=== PATIENT | male | born 1980 | race African-American/Black ===

== ENCOUNTER 2016-10-17 23:58 | Emergency (ER) | payer OTHER ==
--- NOTE | ~2016-10-17 | CT2 ---
[facility] A Service of [facility] RADIOLOGY TEXT RESULTS PATIENT: SHUKRI SAHNI LOCATION: SALLY : [birth year] UNIT #: [id number] AGE: [address]: Savana Parekh MD SEX: M ORDER DR: [id number] [facility]. [place], [place] [address] [id number] E MR#: [id number] Acc #: [id number] NAME: SHUKRI SAHNI : 1980 SEX: M STUDY DATE/TIME: 10/18/2016 1:32 UNIT: SALLY ROOM: STUDY DESCRIPTION: CT Abd and Pelv W Cont Attending Physician: Savana Parekh M.D. Ordering Physician: Savana Parekh M.D. MEDICAL IMAGING REPORT This report is preliminary unless electronic signature is present EXAM CT abdomen and pelvis with contrast 10/18/2016 HISTORY Generalized abdominal pain with nausea, vomiting and diarrhea today. COMPARISON CT head without contrast 08/17/2015. TECHNIQUE 5 mm axial images from the lung bases through lesser trochanters after intravenous contrast administration. Enteric contrast was not administered. Sagittal and coronal reformatted images were obtained. This CT exam was performed with one or more of the following radiation dose reduction techniques: automatic exposure control, adjustment of mA and/or kV according to patient size, and iterative reconstruction. FINDINGS ABDOMEN: Limited evaluation bowel due to lack of both IV and enteric contrast. There appears to be generalized thickening of large and small bowel loops suggesting potential diffuse enterocolitis. No evidence of high-grade large or small bowel obstruction. Appendix appears normal. No free air pneumatosis identified. No abscess is seen. Lung bases appear free of consolidation. Previously described 5 mm in the right lower lobe pulmonary nodule measures slightly smaller today at about 4 mm, and is thought to most likely be stable, allowing for differences in slice selection. The liver, gallbladder, spleen, pancreas, adrenals and kidneys are normal. [facility] A Service of [facility] RADIOLOGY TEXT RESULTS PATIENT: SHUKRI SAHNI LOCATION: SALLY : [birth year] UNIT #: [id number] AGE: [address]: IzabellaSavana Amber RODRIGUEZ SEX: M ORDER DR: PELVIS: No pelvic free fluid is identified. Urinary bladder, prostate and rectum are within normal limits. No acute osseous abnormalities are identified. IMPRESSION 1. Limited evaluation of the bowel due to lack of enteric contrast. There does appear to be some generalized large and small bowel wall thickening raising the possibility of enterocolitis. Correlate with clinical symptoms. 2. The appendix is normal. 3. 4-5 mm noncalcified right lower lobe pulmonary nodule is stable since 08/17/2015. 12-month CT chest followup would be recommended. Dictated by... Tracy Valencia M.D. THIS IS AN ELECTRONICALLY VERIFIED REPORT Tracy Valencia M.D. at 10/18/2016 10:01 PM NALLELY/arvind TD: 10/18/2016 03:32 JOB #: [id number] MEDICAL IMAGING REPORT Page 1 of 1 COPY
[~2016-10-17 23:58] MED LIST: ALBUTEROL17 GM INH; CHANTIX PO; FLEXERIL PO; LORTAB 7.5-5001 TAB PO; MEDROL PO
[2016-10-18 00:07] LABS: BASOPHIL% 0.1 % (0-2.5); DIFF IND YES; EOSINOPHIL# 0.1 X10e3 (0-0.7); EOSINOPHIL% 0.7 % (0.0-7.0); HEMATOCRIT 48.6 % (38.0-50.0); LYMPHOCYTE# 0.8 X10e3 (1.0-3.5); LYMPHOCYTE% 4.3 % (17.0-45.0); MEAN CORPUSCULAR HEMOGLOBIN 29.7 PG (28-34); MEAN PLATELET VOLUME 8.2 FL (6.5-11.5); MONOCYTE# 0.5 X10e3 (0-1.0); MONOCYTE% 2.6 % (3.0-12.0); NEUTROPHIL% 92.3 % (40-75); PLATELET COUNT 272 X10e3 (140-420); RED CELL DISTRIBUTION WIDTH 12.4 % (11.0-15.5); WHITE BLOOD COUNT 19.5 X10e3 (4.0-10.5)
[2016-10-18 00:30] LABS: ALBUMIN SERUM 4.8 g/dL (3.5-5.0); BILIRUBIN, DIRECT 0.2 mg/dL (0.0-0.2); BILIRUBIN,INDIRECT 0.8 mg/dL (0.0-0.9); CALCIUM SERUM 9.3 mg/dL (8.4-10.2); GLOM FILT RATE Estimated 111.7 mL/min (>60); POTASSIUM 4.2 mmol/L (3.5-5.1); PROTEIN TOTAL SERUM 7.8 g/dL (6.0-8.3)
[2016-10-18 00:35] LABS: PLATELET ESTIMATE NORMAL (NORMAL)
[2016-10-18 00:36] LABS: RBC NORMAL YES
[2016-10-18 00:56] LABS: URINE SOURCE CLEAN CATCH
[2016-10-18 01:01] LABS: URINE APPEARANCE CLEAR; URINE BILIRUBIN NEG (NEG); URINE BLOOD NEG (NEG); URINE COLOR YELLOW; URINE GLUCOSE NEG (NEG); URINE KETONE NEG (NEG); URINE LEUKOCYTE ESTERASE NEG (NEG); URINE NITRATE NEG (NEG); URINE PROTEIN NEG (NEG); URINE SPECIFIC GRAVITY 1.029 (1.003-1.035)
[2016-10-18 01:02] LABS: URINE SQUAMOUS EPITHELIAL CELL FEW /[HPF]
[2016-10-18 01:03] LABS: CULTURE INDICATED? NO
[2016-10-18 01:18] LABS: AMPHETAMINE POS (NEG); BARBITURATES NEG (NEG); BENZODIAZEPINES POS (NEG); COCAINE NEG (NEG); MARIJUANA NEG (NEG); OPIATES NEG (NEG); TRICYCLIC ANTIDEPRESSANTS NEG (NEG); U METHADONE NEG (NEG)
== END 2016-10-18 02:20 | disposition home or self-care (01) ==
LOC: CED 23:58
PROVIDERS: Student in an Organized Health Care Education/Training Program
DX: R11.2 Nausea with vomiting, unspecified (principal); R19.7 Diarrhea, unspecified; J45.909 Unspecified asthma, uncomplicated; F17.200 Nicotine dependence, unspecified, uncomplicated; E78.5 Hyperlipidemia, unspecified; Z79.899 Other long term (current) drug therapy
CPT/HCPCS: 36415; 74177; 80048; 80076; 80307; 81003; 83690; 85025; 96361; 96374; 96375; 99284; C9113; J1885; J2405; Q9967